=== PATIENT | male | born 1950 | race African-American/Black ===

== ENCOUNTER 2023-03-03 15:07 | Emergency (ER) | payer MEDICARE, SELFPAY ==
--- NOTE | ~2023-03-03 | US_ITS ---
EXAMINATION: US venous doppler [facility] DATE: 03/03/2023 16:10 INDICATION: pain to left leg, into calf, hx dvt . TECHNIQUE: Grayscale images without and with compression and Doppler images of the left lower extremi ty veins were obtained. COMPARISON: None FINDINGS: The left common femoral vein, profunda (deep) femoral vein, femoral vein, popliteal vein, peroneal v ein, posterior tibial veins, gastrocnemius vein, and greater saphenous vein are patent. IMPRESSION: Patent left lower extremity veins. No evidence of deep venous thrombosis. Reviewed, dictated and finalized at location K. ETER
--- NOTE | ~2023-03-03 | XR_ITS ---
XR lumbar spine 2-3V 03/03/2023 15:48 Indication: Low back pain. Procedure: 3 views lumbar spine Comparison: No prior studies for comparison. Findings: Vertebral body heights are maintained. There is disc narrowing at L5-S1. No fracture, sublu xation or spondylolisthesis. Normal lumbar lordosis. Pedicles intact. Sacral foramen are symmetric. Impression: 1: No acute abnormality of the lumbar spine. Reviewed, dictated and finalized at location L. [employer] Impression: 1: No acute abnormality of the lumbar spine.
[2023-03-03 15:19] VITALS: BP 142/72; PULSE 90; RESP 16; TEMP 36.7; O2SAT 100
--- NOTE | 2023-03-03 15:21 | ED.EXTPRO ---
HPI - Extremity Problem General Chief complaint: Extremity Problem,Nontraumatic <CHAS Frederick Last Filed: 03/03/23 15:30> Stated complaint: leg pain <CHAS Frederick Last Filed: 03/03/23 15:30> Time Seen by Provider: 03/03/23 15:37 <CHAS Frederick Last Filed: 03/03/23 15:30> Source: patient <CHAS Frederick Last Filed: 03/03/23 15:30> Mode of arrival: ambulatory <CHAS Frederick Last Filed: 03/03/23 15:30> Limitations: no limitations <CHAS Frederick Last Filed: 03/03/23 15:30> History of Present Illness HPI Narrative: Patient is a 72 y/o male who presents to the ED with c/o LLE pain. Patient reports having pain radiating from his left lower back into his buttock and down to his thigh and calf intermittently for the last 1 week. He is concerned it may be his sciatica. He does state he was lifting heavy objects at [employer] prior to when the pain began. He has been taking Tylenol and using icy hot for the pain w/o relief. Does report some tingling in leg. Denies numbness. He denies any swelling in his lower extremity but does report hx of previous DVT several years ago. He is not currently anticoagulated. Denies CP/SOB. <CHAS Frederick Last Filed: 03/03/23 15:30> Patient is a 72 y/o male who presents to the ED with c/o LLE pain. Patient reports having pain radiating from his left buttock and down to his thigh and calf intermittently for the last 1 week. He is concerned it may be his sciatica. He does state he was lifting heavy objects at [employer] on Thursday prior to when the pain began Thursday morning. He has been taking Tylenol and using icy hot for the pain w/o relief. Does report some tingling in leg. Denies numbness. He denies any swelling in his lower extremity but does report hx of previous DVT several years ago. He is not currently anticoagulated. Denies CP/SOB. Denies rash. No fever no saddle anesthesia he denies any bowel or bladder incontinence or retention. He does note that he has been passing gas frequently but denies abdominal pain. Pain is improved if lying on his R side. It does not hurt to walk but it hurts to sit. PCP is either Dr Mendoza at [facility] or Dr Mclean. <Mary Stanford MD - Last Filed: 03/04/23 18:26> Related Data Allergies/Adverse reactions: Allergies Allergy/AdvReac Type Severity Reaction Status Date / Time No Known Allergies Allergy Mild Verified 03/03/23 15:27 <Belem Bo PA-C - Last Filed: 03/03/23 15:30> Review of Systems Constitutional: Constitutional: Denies fever(s) <Belem Bo PA-C - Last Filed: 03/03/23 15:30> Musculoskeletal: Musculoskeletal: Reports back pain and Denies joint swelling <Belem Bo PA-C - Last Filed: 03/03/23 15:30> Comments: L lower back pain radiating down LLE into posterior thigh and calf <Belem Bo PA-C - Last Filed: 03/03/23 15:30> Exam Const: General: healthy appearing and no acute distress <Belem Bo PA-C - Last Filed: 03/03/23 15:30> Nutritional Appearance: obese <CHAS Frederick Last Filed: 03/03/23 15:30> Orientation/consciousness: patient oriented x3 <CHAS Frederick Last Filed: 03/03/23 15:30> Limitations: no limitations <Belem Bo PA-C - Last Filed: 03/03/23 15:30> HENMT: Head: normal to inspection, no contusions and no hematomas <Mary Stanford MD - Last Filed: 03/04/23 18:26> Other: Gross auditory acuity intact <Mary Stanford MD - Last Filed: 03/04/23 18:26> Eyes: Direct Ophthalmoscopy: no photophobia <Mary Stanford MD - Last Filed: 03/04/23 18:26> Neck: Neck: normal visual inspection and no meningeal signs <Mary Stanford MD - Last Filed: 03/04/23 18:26> Resp: Effort & Inspection: normal respiratory effort <Belem Bo PA-C - Last Filed: 03/03/23 15:30
[2023-03-03] MEDS: ACETAMINOPHEN 500 MG TABLET 1000 MG PO (15:28)
[2023-03-03] MEDS: CYCLOBENZAPRINE HCL 5 MG TABLET PO (15:29)
[2023-03-03] MEDS: KETOROLAC 30 MG/ML VIAL (*BKC) 15 MG IM (17:29)
[2023-03-03] MEDS: HYDROcodone/acetaminophen (*CRX) 5-325 MG TABLET 1 TAB PO (17:29)
== END 2023-03-03 17:37 | disposition home or self-care (01) ==
PROVIDERS: Emergency Provider Student in an Organized Health Care Education/Training Program
DX: M54.42 Lumbago with sciatica, left side (principal)
CPT/HCPCS: 72100; 93971; 96372; 99284; A9270; J1885